=== PATIENT | male | born 2000 | race Asian ===

== ENCOUNTER 2019-04-28 20:00 | Emergency (ER) | payer MEDICAID, OTHER ==
[~2019-04-28] VITALS: Ht 180.3 cm; Wt 68.2 kg
[~2019-04-28 20:00] MED LIST: ALBU17AE16 IH
[2019-04-28 20:38] VITALS: BP 122/77
[2019-04-28] MEDS ORDERED: IBUPROFEN 600 MG TABLET PO ONE (21:30)
== END 2019-04-28 21:51 | disposition home or self-care (01) ==
LOC: EMS 20:01
DX: S93.402A Sprain of unspecified ligament of left ankle, initial encounter (principal); X50.1XXA Overexertion from prolonged static or awkward postures, initial encounter; Y93.51 Activity, roller skating (inline) and skateboarding; Y92.89 Other specified places as the place of occurrence of the external cause; Y99.8 Other external cause status